=== PATIENT | male | born 1985 | race Caucasian/White ===

== ENCOUNTER → 2021-09-27 14:59 | Outpatient (CLI) | payer OTHER, SELFPAY | PROVIDERS: Visit Provider Nurse Practitioner | DX: Z20.822 Contact with and (suspected) exposure to COVID-19 (principal) | CPT/HCPCS: C9803; U0003; U0005 ==

== ENCOUNTER → 2022-01-23 12:09 | Outpatient (CLI) | payer OTHER, SELFPAY ==
[2022-01-23 17:05] LABS: Chloride 104 mmol/L (98-107); Sodium 140 mmol/L (136-145)
[2022-01-23 17:07] LABS: Blood Urea Nitrogen 11 mg/dl (9-20); Estimated Glomerular Filt Rate 153 ml/min (>60); GFR (African American) 186 ML/MIN (>60)
[2022-01-23 17:08] LABS: Alanine Aminotransferase 24 U/L (12-78); Albumin Level 4.1 g/dl (3.5-5.0); Albumin/Globulin Ratio 1.4 (1.1-1.8); Alkaline Phosphatase 85 U/L (38-126); Aspartate Amino Transferase 28 U/L (17-59); Bilirubin,Total 0.5 mg/dl (0.2-1.3); Calcium 9.4 mg/dl (8.4-10.2); Carbon Dioxide 28 mmol/L (22.0-30.0); Chol/HDL Ratio 3.9 (1-3.5); Cholesterol 144 mg/dl (140-200); Glucose 105 mg/dl (74-100); HDL Cholesterol 37 mg/dl (40-60); Total Protein,Serum 7.1 g/dl (6.3-8.2); Triglycerides 90 mg/dl (30-150); VLDL Cholesterol 18 mg/dL (0-40)
[2022-01-23 17:18] LABS: Basophils # 0.1 K/mm3 (0-0.2); Basophils % 0.7 % (0.1-2.0); Eosinophils # 0.1 K/mm3 (0.0-0.4); Eosinophils % 1.1 % (0.1-12.0); Hematocrit 44.7 % (42.0-52.0); Hemoglobin 15.1 g/dL (14.1-18.0); Lymphocytes # 1.7 K/mm3 (0.7-4.5); Lymphocytes % 18.7 % (10-50); Mean Corpuscular HGB Conc 33.7 g/dL (31.8-35.4); Mean Corpuscular Hemoglobin 30.4 pg (27.0-31.2); Mean Corpuscular Volume 90.2 fl (80-94); Mean Platelet Volume 8.5 fl (7.4-10.4); Monocytes # 0.4 K/mm3 (0.1-1.0); Monocytes % 4.4 % (1.7-9.3); Neutrophils # 6.7 K/mm3 (1.8-7.8); Neutrophils % 75.2 % (37.0-80.0); Platelet Count 245 K/mm3 (142-424); Red Blood Count 4.96 M/mm3 (4.60-6.20); Red Cell Distribution Width 13.4 % (11.5-17.5); White Blood Count 8.9 K/mm3 (4.8-10.8)
[2022-01-23 17:20] LABS: Direct LDL Cholesterol 82.47 mg/dL (100-129)
[2022-01-23 17:34] LABS: 25-OH Vitamin D, Total 23.1 ng/mL (30-100)
[2022-01-23 17:38] LABS: T4 (Thyroxine) 10.4 ug/dl (5.53-11.0)
[2022-01-23 17:50] LABS: Thyroid Stimulating Hormone 0.61 uIU/mL (0.465-4.68)
== END ==
PROVIDERS: Visit Provider Nurse Practitioner Family
DX: I10 Essential (primary) hypertension (principal); E78.5 Hyperlipidemia, unspecified; R53.83 Other fatigue; E55.9 Vitamin D deficiency, unspecified; M79.605 Pain in left leg; M79.604 Pain in right leg
CPT/HCPCS: 80053; 80061; 82306; 84436; 84443; 85025